=== PATIENT | female | born 2000 | race Two or more races ===

== ENCOUNTER 2023-12-06 22:29 | Emergency (ER) | payer MEDICAID ==
[~2023-12-06] VITALS: Ht 162.6 cm; Wt 68.0 kg
[2023-12-07 00:40] VITALS: BP 111/71; TEMP 98.3; O2SAT 97
== END 2023-12-07 00:44 | disposition home or self-care (01) ==
LOC: ER 22:31
DX: T78.49XA Other allergy, initial encounter (principal); J45.909 Unspecified asthma, uncomplicated; Z88.2 Allergy status to sulfonamides; R07.9 Chest pain, unspecified; X58.XXXA Exposure to other specified factors, initial encounter